=== PATIENT | female | born 1990 ===

== ENCOUNTER 2023-04-15 08:37 | Outpatient (CLI) | payer OTHER, SELFPAY ==
[2023-04-15 15:18] LABS: Chlamydia DNA Amplified* NOT DETECTED (No Detected); GC DNA Amplified* NOT DETECTED (No Detected)
== END 2023-04-15 08:38 | disposition home or self-care (01) ==
PROVIDERS: PCP Physician Assistant Medical; Visit Provider Physician Assistant Medical
DX: R79.89 Other specified abnormal findings of blood chemistry (principal)
CPT/HCPCS: 80053; 86703; 86803; 87491; 87591